=== PATIENT | female | born 1950 | race Caucasian/White ===

== ENCOUNTER 2019-03-05 16:03 | Outpatient (REF) | payer MEDICARE, SELFPAY ==
[2019-03-05 19:12] LABS: Vitamin D 25 Total 43.9 ng/ml (30-100)
[2019-03-05 19:13] LABS: ALT 29 U/L (14-59); AST 25 U/L (15-37); Albumin 3.8 g/dL (3.4-5.0); Alkaline Phosphatase 52 U/L (46-116); Anion Gap 8.1 mmol/L (3-11); BUN 11 mg/dL (7-18); Bilirubin, Total 0.5 mg/dL (0.2-1.0); CO2 28.9 mmol/L (21.0-32.0); CREATININE 0.59 mg/dL (0.55-1.02); Calcium 9.2 mg/dL (8.5-10.1); Calculated LDL 117 mg/dL; Chloride 102 mmol/L (98-107); Cholesterol 230 mg/dL (<200); Glucose 85 mg/dL (74-106); HDL Cholesterol 103 mg/dL (40-60); Potassium 4.3 mmol/L (3.5-5.1); Sodium 139 mmol/L (136-145); TSH (W/Ref FT4) 1.79 uIU/mL (0.36-3.74); Total Protein 6.6 g/dL (6.4-8.2); Triglyceride 52 mg/dL (<150)
== END 2019-03-05 16:23 ==
LOC: NCHCN 16:03
PROVIDERS: PCP Nurse Practitioner; Visit Provider Nurse Practitioner
DX: E78.00 Pure hypercholesterolemia, unspecified (principal); R00.2 Palpitations; M81.0 Age-related osteoporosis without current pathological fracture
CPT/HCPCS: 80053; 80061; 82306; 84443

== ENCOUNTER 2019-04-02 01:35 | Outpatient (CLI) | payer MEDICARE, OTHER, SELFPAY ==
--- NOTE | 2019-04-02 12:44 | DI.MAMMO_ITS ---
EXAM: MG MAMMO SCREENING CLINICAL HISTORY: SCREENING, Z12.39. TECHNIQUE: Bilateral full field digital CC and MLO mammographic images were obtained with 3D tomosyn thesis and utilizing computer aided detection (CAD). COMPARISON: Available for comparison. FINDINGS: Masses/Architectural Distortion: None seen. Microcalcifications: No suspicious pleomorphic-type are seen. Skin Thickening/Nipple Retraction: None. IMPRESSION: 1. No significant interval change with no specific features of malignancy noted. 2. Unless there is more urgent need, screening mammography is recommended, as per [employer] guidelines. ACR BI-RAD Category- 1 Negative Breast Density - Category D - Extremely dense The mammogram demonstrates the patient's breast tissue is dense. Dense breast tissue is very common a nd is not abnormal but dense breast tissue can make it harder to find cancer on a mammogram. Also, de nse breast tissue may increase their breast cancer risk. This information about the result of the [facility] mogram report was provided to the patient to raise their awareness. Use this report when you speak wi th the patient about their risks for breast cancer, which includes their family history. At that time , you may recommend for more screening tests (Ultrasound or MRI) as they might be useful based on the ir risk. A negative radiographic report should not delay biopsy if a dominant or clinically suspicious mass is present. Up to ten percent of cancers are not identified on mammography. A negative report may reinforce clinical impression. Adenosis and dense breasts may obscure an underlying neoplasm. False positive reports average 6 to 10%. Patient will receive a letter notifying them of these results.
== END 2019-04-02 01:55 ==
PROVIDERS: PCP Nurse Practitioner; Visit Provider Nurse Practitioner
DX: Z12.31 Encounter for screening mammogram for malignant neoplasm of breast (principal)
CPT/HCPCS: 77063; 77067

== ENCOUNTER 2019-05-10 06:54 | Outpatient (CLI) | payer MEDICARE, SELFPAY ==
--- NOTE | 2019-05-10 14:15 | DI.DEXA_ITS ---
EXAM: XR DEXA BONE DENSITY W/WO OTTO CLINICAL HISTORY: OSTEOPOROSIS, M81.0 TECHNIQUE: Hologic densitometer. COMPARISON: 2010 and 2016 FINDINGS: The OTTO image shows no evidence of compression fractures. The bone mineral density measurements of t he lumbar spine correspond to a total T-score of -3.1, in the osteoporotic range. This is a 3.5 perc ent decrease when compared with 2016 and a 10.9 percent decrease when compared with 2011. The bone mineral density measurements of the left hip correspond to a total T-score of -2.3 and a fem oral neck T-score of -2.6, in the osteoporotic range. This represents a 6.8 percent decrease from 20 16 and an 8.9 percent decrease when compared with 2011. The bone mineral density measurements of the left forearm correspond to a T-score of the distal 3rd o f -1.8, in the osteopenic range. The total T-score of the forearm is -2.8. This corresponds to a de crease of 6.4 percent when compared with the previous exam and 7.2 percent decrease when compared wit h the baseline exam. IMPRESSION: Osteoporosis of the lumbar spine and left hip with decreased density when compared with previous exam s. Osteopenia of the forearm, also with decrease when compared with previous studies.
== END 2019-05-10 07:14 ==
PROVIDERS: PCP Nurse Practitioner; Visit Provider Nurse Practitioner
DX: M81.0 Age-related osteoporosis without current pathological fracture (principal); M85.88 Other specified disorders of bone density and structure, other site
CPT/HCPCS: 77080

== ENCOUNTER 2021-04-09 18:33 | Outpatient (REF) | payer MEDICARE, SELFPAY ==
[2021-04-09 15:57] LABS: ALT 27 U/L (14-59); AST 23 U/L (15-37); Albumin 3.8 g/dL (3.4-5.0); Alkaline Phosphatase 49 U/L (46-116); Anion Gap 7.6 mmol/L (3-11); BUN 14 mg/dL (7-18); Bilirubin, Total 0.5 mg/dL (0.2-1.0); CO2 26.4 mmol/L (21.0-32.0); CREATININE 0.6 mg/dL (0.55-1.02); Chloride 99 mmol/L (98-107); Glucose 96 mg/dL (74-106); Magnesium 2.5 mg/dL (1.8-2.4); Sodium 133 mmol/L (136-145); Total Protein 6.7 g/dL (6.4-8.2)
== END 2021-04-09 18:34 | disposition home or self-care (01) ==
LOC: NCHCN 18:33
PROVIDERS: PCP Nurse Practitioner; Visit Provider Nurse Practitioner Family
DX: M81.0 Age-related osteoporosis without current pathological fracture (principal)
CPT/HCPCS: 80053; 83735

== ENCOUNTER 2021-04-20 01:35 | Outpatient (CLI) | payer MEDICARE, SELFPAY ==
--- NOTE | 2021-04-20 | DI.MAMMO_ITS ---
Exam(s) MAMMO SCREENING EXAM: MAMMO SCREENING CLINICAL HISTORY: SCREENING, Z12.39. TECHNIQUE: Bilateral full field digital CC and MLO mammographic images were obtained with 3D tomosyn thesis and utilizing computer aided detection (CAD). COMPARISON: Prior mammograms were reviewed, the most recent being March 2019. FINDINGS: The fibroglandular tissue pattern is again noted to be extremely dense, this decreasing the sensitivi ty of the mammogram for finding hidden underlying lesions. There are no CAD designations There are no new obvious spiculated masses nor malignant appearing microcalcification groups. There is no significant architectural distortion nor skin thickening-retraction. IMPRESSION: Very dense bilateral fibroglandular tissue. No obvious radiographic evidence of malignancy nor signi ficant change compared to prior mammograms. BI-RADS Category 1 - Negative Breast Density - Category D - Extremely dense Breast density Category C or D implies that the patient has dense breast tissue. Dense breast tissue can make it harder to find cancer on a mammogram. Dense breast tissue is also associated with an incr eased risk of breast cancer. This information about the result of the mammogram report was provided to the patient to raise their awareness. Use this report when you speak with the patient about their risks for breast cancer, which includes their family history. At that time, you may recommend additional screening tests (Ultrasoun d or MRI) as these tests may add significant information. A negative radiographic report should not delay biopsy if a dominant or clinically suspicious mass is present. Up to ten percent of cancers are not identified on mammography. A negative report may reinforce clinical impression. Adenosis and dense breasts may obscure an underlying neoplasm. False positive reports average 6 to 10%. Patient will receive a letter notifying them of these results.
== END 2021-04-20 01:55 ==
PROVIDERS: PCP Nurse Practitioner; Visit Provider Nurse Practitioner Family
DX: Z12.31 Encounter for screening mammogram for malignant neoplasm of breast (principal); N64.89 Other specified disorders of breast
CPT/HCPCS: 77063; 77067

== ENCOUNTER 2021-05-21 01:55 | Outpatient (CLI) | payer MEDICARE, SELFPAY ==
--- NOTE | 2021-05-21 14:00 | DI.DEXA_ITS ---
Exam(s) XR DEXA BONE DENSITY W/WO OTTO EXAM: XR DEXA BONE DENSITY W/WO OTTO CLINICAL HISTORY: H/O OSTEOPOROSIS, M81.0; 2 YEARS ON BISPHOSPHONATES TECHNIQUE: COMPARISON: CR XR DEXA BONE DENSITY W/WO OTTO from 05/10/2019 FINDINGS: Lateral Spine Image: Unremarkable. No compression deformities identified. Left hip: Total T-Score: -2.3. This is unchanged compared to the prior examination. Total Z-Score: -0.8 T- and Z-scores: Findings are consistent with osteopenia. There is osteoporosis noted in the femoral neck with a T-score of -2.8. Lumbar Spine: Total T-Score: -2.8. This compares to -3.1 on the prior examination. This shows an improvement of 3. 6 percent from the prior examination. Total Z-Score: -0.7 T- and Z-scores: Findings of osteoporosis. IMPRESSION: Findings of osteoporosis in the left hip and lumbar spine.
== END 2021-05-21 02:15 ==
PROVIDERS: PCP Nurse Practitioner; Visit Provider Nurse Practitioner Family
DX: M81.0 Age-related osteoporosis without current pathological fracture (principal); Z13.820 Encounter for screening for osteoporosis
CPT/HCPCS: 77080